=== PATIENT | female | born 1955 ===

== ENCOUNTER → 2017-06-15 | Outpatient (CLI) | payer MEDICARE, OTHER ==
[~2017-06-15] MED LIST: ASPI81EC PO; CHOL10002 PO; CYCL10 PO; Cyclobenzaprine5 MG PO; DULO30; DULO60 PO; FAMO20 PO; GUAI120S1 PO; HYDACE5 PO; IBUP800 PO; KETO10 PO; LISHYD2012 PO; LOVA20 PO; MULVITMIND PO; NAPR375 PO; Norco 5-325 Ta1 EACH PO; POTASSIUM IODINE PO; PRED20 PO; PREG100 PO; Prednisone20 MG PO
== END ==
LOC: LAB 16:11
DX: L01.01 Non-bullous impetigo (principal); L40.0 Psoriasis vulgaris
CPT/HCPCS: 87070; 87205

== ENCOUNTER 2018-01-26 09:23 | Emergency (ER) | payer MEDICARE, OTHER ==
[~2018-01-26] VITALS: Ht 162.6 cm; Wt 117.9 kg
[~2018-01-26 09:23] MED LIST changes: -Cyclobenzaprine5 MG PO; -IBUP800 PO; -KETO10 PO
[2018-01-26] MEDS ORDERED: CYCL10 PO (10:14)
[2018-01-26] MEDS ORDERED: Norco 5-325 Ta1 EACH PO (10:15)
[2018-01-26] MEDS ORDERED: IBUP800 PO (10:15)
== END 2018-01-26 10:22 | disposition home or self-care (01) ==
LOC: ER 09:23
DX: G89.29 Other chronic pain (principal); M54.5 Low back pain; Z88.0 Allergy status to penicillin; Z88.2 Allergy status to sulfonamides; Z79.899 Other long term (current) drug therapy; F17.200 Nicotine dependence, unspecified, uncomplicated
CPT/HCPCS: 96372; 99283; J1885

== ENCOUNTER 2018-03-16 12:18 | Emergency (ER) | payer MEDICARE, OTHER ==
[~2018-03-16] VITALS: Ht 160 cm; Wt 117.9 kg
[~2018-03-16 12:18] MED LIST changes: +IBUP800 PO
[2018-03-16] MEDS ORDERED: KETO10 PO (12:46)
[2018-03-16] MEDS ORDERED: Cyclobenzaprine5 MG PO (12:46)
== END 2018-03-16 12:55 | disposition home or self-care (01) ==
LOC: ER 12:18
DX: M54.41 Lumbago with sciatica, right side (principal); M54.42 Lumbago with sciatica, left side; Z87.891 Personal history of nicotine dependence
CPT/HCPCS: 99282

== ENCOUNTER → 2021-03-01 | Outpatient (CLI) | payer MEDICARE ==
[~2021-03-01] MED LIST changes: +Cyclobenzaprine5 MG PO; +KETO10 PO
== END | disposition home or self-care (01) ==
LOC: LAB 14:48 → LAB SHORT 14:48
DX: N39.0 Urinary tract infection, site not specified (principal)
CPT/HCPCS: 87086

== ENCOUNTER → 2021-04-10 | Outpatient (CLI) | payer MEDICARE | LOC: LAB SHORT 19:19 → LAB 19:19 | DX: N39.0 Urinary tract infection, site not specified (principal); Z88.0 Allergy status to penicillin; Z88.2 Allergy status to sulfonamides | CPT/HCPCS: 87086 ==

== ENCOUNTER 2021-05-12 12:45 | Emergency (ER) | payer MEDICARE ==
[~2021-05-12] VITALS: Ht 160 cm; Wt 127.0 kg
[2021-05-12 13:23] LABS: BASOPHILS ABSOLUTE AUTO 0.09 K/mm3 (0.00-0.23); BASOPHILS PERCENT AUTO 1 % (0-2); EOSINOPHILS ABSOLUTE AUTO 0.24 K/mm3 (0.00-0.68); EOSINOPHILS PERCENT AUTO 3 % (0-6); Hematocrit 34.2 % (33.0-51.0); Hemoglobin 10.8 g/dL (11.5-16.0); IMMATURE GRAN ABSOLUTE AUTO 0.07 K/mm3 (0.00-0.10); IMMATURE GRAN PERCENT AUTO 1 % (0-1); LYMPHOCYTES ABSOLUTE AUTO 1.61 K/mm3 (0.84-5.20); LYMPHOCYTES PERCENT AUTO 21 % (21-46); MONOCYTES PERCENT AUTO 6 % (4-13); Mean Corpuscular HGB 28.7 pg (26.0-34.0); Mean Corpuscular HGB Conc 31.6 g/dL (31.5-36.5); Mean Corpuscular Volume 91 fL (80-100); NEUTROPHILS ABSOLUTE AUTO 5.27 K/mm3 (1.96-9.15); NEUTROPHILS PERCENT AUTO 68 % (41-73); Platelet Count 320 K/mm3 (150-400); RDW Coefficient Variation 15.4 % (11.7-14.2); RDW Standard Deviation 51.1 fL (35.1-46.3); Red Blood Cell Count 3.76 M/mm3 (3.80-5.20); White Blood Cell Count 7.78 K/mm3 (4.00-11.30)
[2021-05-12 13:43] LABS: Alanine Aminotransfer (ALT/SGP 95 U/L (12-78); Albumin, Blood 2.8 g/dL (3.4-5.0); Albumin/Globulin Ratio 0.7 (0.8-1.8); Alk Phos 95 U/L (50-136); Anion Gap 7 mmol/L (6-16); Aspartate Aminotrans (AST/SGOT 46 U/L (12-37); Bilirubin, Total 0.2 mg/dL (0.1-1.0); Blood Urea Nitrogen 10 mg/dL (8-24); Bun/Creatinine Ratio 10.5 (12.0-20.0); CO2, Blood 25 mmol/L (21-32); Calcium, Blood 8.4 mg/dL (8.5-10.1); Chloride, Blood 106 mmol/L (98-108); Creatinine, Blood 0.95 mg/dL (0.40-1.00); Glomerular Filtration Rate 59 (60-); Glucose, Blood 139 mg/dL (70-99); Potassium, Blood 3.3 mmol/L (3.5-5.5); Sodium, Blood 138 mmol/L (136-145); Total Protein, Blood 6.8 g/dL (6.4-8.2); Troponin I <0.015 ng/mL (0.000-0.040)
[2021-05-12] MEDS ORDERED: LISI20 PO (15:43)
[2021-05-12] MEDS ORDERED: CLOBETASOL EMOL15 G1 (15:43)
[2021-05-12] MEDS ORDERED: ZOLOFT50 MG PO (15:44)
[2021-05-12] MEDS ORDERED: PRAMIPEXOLE0.125 M1 PO (15:44)
[2021-05-12] MEDS ORDERED: HYDCHL25 PO (15:44)
[2021-05-12] MEDS ORDERED: OMEP20ER PO (15:44)
[2021-05-12] MEDS ORDERED: [UNRECOGNIZED DRUG - CODE] PO (15:45)
[2021-05-12] MEDS ORDERED: SKYRIZI75 MG/0.81 SQ (15:45)
[2021-05-12] MEDS ORDERED: ATOR40TA PO (15:45)
[2021-05-12] MEDS ORDERED: CODEINE-GUAIFE120 M1 PO (16:01)
== END 2021-05-12 16:16 | disposition home or self-care (01) ==
LOC: ER 12:45
PROVIDERS: Physician Assistant
DX: J40 Bronchitis, not specified as acute or chronic (principal); Z88.0 Allergy status to penicillin; Z88.2 Allergy status to sulfonamides; Z79.899 Other long term (current) drug therapy; Z79.84 Long term (current) use of oral hypoglycemic drugs; G47.33 Obstructive sleep apnea (adult) (pediatric); Z87.891 Personal history of nicotine dependence
CPT/HCPCS: 36415; 71045; 80053; 83880; 84484; 85025; 93005; 93010; 99283-25

== ENCOUNTER → 2021-10-03 | Outpatient (CLI) | payer MEDICARE, OTHER ==
[~2021-10-03] MED LIST changes: +ATOR40TA PO; +CLOBETASOL EMOL15 G1; +CODEINE-GUAIFE120 M1 PO; +HYDCHL25 PO; +LISI20 PO; +OMEP20ER PO; +PRAMIPEXOLE0.125 M1 PO; +SKYRIZI75 MG/0.81 SQ; +ZOLOFT50 MG PO; +[UNRECOGNIZED DRUG - CODE] PO
== END | disposition home or self-care (01) ==
LOC: LAB SHORT 08:30 → LAB 08:30
DX: L08.9 Local infection of the skin and subcutaneous tissue, unspecified (principal)
CPT/HCPCS: 87070; 87077; 87147; 87186; 87205

== ENCOUNTER 2021-10-16 06:31 | Emergency (ER) | payer MEDICARE, OTHER ==
[~2021-10-16] VITALS: Ht 157.5 cm; Wt 127.0 kg
[2021-10-16 07:06] LABS: BASOPHILS PERCENT AUTO 1 % (0-2); EOSINOPHILS ABSOLUTE AUTO 0.19 K/mm3 (0.00-0.68); EOSINOPHILS PERCENT AUTO 2 % (0-6); Hematocrit 32.8 % (33.0-51.0); Hemoglobin 10.5 g/dL (11.5-16.0); IMMATURE GRAN ABSOLUTE AUTO 0.13 K/mm3 (0.00-0.10); IMMATURE GRAN PERCENT AUTO 1 % (0-1); LYMPHOCYTES ABSOLUTE AUTO 1.29 K/mm3 (0.84-5.20); LYMPHOCYTES PERCENT AUTO 14 % (21-46); MONOCYTES ABSOLUTE AUTO 0.62 K/mm3 (0.16-1.47); MONOCYTES PERCENT AUTO 7 % (4-13); Mean Corpuscular HGB 28.3 pg (26.0-34.0); Mean Corpuscular Volume 88 fL (80-100); Mean Platelet Volume 9.9 fL (9.1-12.4); NEUTROPHILS ABSOLUTE AUTO 6.69 K/mm3 (1.96-9.15); NEUTROPHILS PERCENT AUTO 74 % (41-73); Platelet Count 418 K/mm3 (150-400); RDW Coefficient Variation 17.1 % (11.7-14.2); RDW Standard Deviation 55.5 fL (35.1-46.3); Red Blood Cell Count 3.71 M/mm3 (3.80-5.20); White Blood Cell Count 9.02 K/mm3 (4.00-11.30)
[2021-10-16 07:26] LABS: Alanine Aminotransfer (ALT/SGP 67 U/L (12-78); Albumin, Blood 3.1 g/dL (3.4-5.0); Albumin/Globulin Ratio 0.8 (0.8-1.8); Alk Phos 96 U/L (50-136); Anion Gap 7 mmol/L (6-16); Aspartate Aminotrans (AST/SGOT 25 U/L (12-37); Bilirubin, Total 0.2 mg/dL (0.1-1.0); Blood Urea Nitrogen 15 mg/dL (8-24); CO2, Blood 24 mmol/L (21-32); Calcium, Blood 8.4 mg/dL (8.5-10.1); Chloride, Blood 111 mmol/L (98-108); Creatinine, Blood 0.88 mg/dL (0.40-1.00); Globulin, Blood 3.9 g/dL (2.2-4.0); Glomerular Filtration Rate >60 (60-); Glucose, Blood 144 mg/dL (70-99); Potassium, Blood 4.1 mmol/L (3.5-5.5); Sodium, Blood 142 mmol/L (136-145)
[2021-10-16] MEDS ORDERED: Toprol Xl25 MG PO (09:45)
[2021-10-16] MEDS ORDERED: Lasix20 MG PO (09:45)
== END 2021-10-16 10:23 | disposition home or self-care (01) ==
LOC: ER 06:31
PROVIDERS: Emergency Medicine
DX: R07.89 Other chest pain (principal); R06.00 Dyspnea, unspecified; I10 Essential (primary) hypertension; J90 Pleural effusion, not elsewhere classified; E66.9 Obesity, unspecified; G47.33 Obstructive sleep apnea (adult) (pediatric); Z87.891 Personal history of nicotine dependence; Z79.899 Other long term (current) drug therapy; Z88.0 Allergy status to penicillin; Z88.2 Allergy status to sulfonamides; Z79.84 Long term (current) use of oral hypoglycemic drugs
CPT/HCPCS: 36415; 71046; 71260; 80053; 83690; 83880; 84484; 85025; 93005; 93010; A9270; J1940; Q9967

== ENCOUNTER 2021-12-08 07:16 | Day surgery (SDC) | payer MEDICARE, OTHER ==
[~2021-12-08] VITALS: Ht 160 cm; Wt 121.7 kg
[~2021-12-08 07:16] MED LIST changes: +FURO40 PO; +Lasix20 MG PO; +METO25ER PO; +POTA10T PO; +PRAM.5 PO; +PROAIR DIGIHAL90 MCG INH; +Toprol Xl25 MG PO; +ZESTRIL40 M1 PO
== END 2021-12-08 09:45 | disposition home or self-care (01) ==
LOC: ORSCSDS 07:16
PROVIDERS: Surgery
PROC: 0DBK8ZX Excision of Ascending Colon, Via Natural or Artificial Opening Endoscopic, Diagnostic (ICD-10-PCS; principal; 2021-12-08 08:30)
DX: Z12.11 Encounter for screening for malignant neoplasm of colon (principal); D12.2 Benign neoplasm of ascending colon; J44.9 Chronic obstructive pulmonary disease, unspecified; G47.33 Obstructive sleep apnea (adult) (pediatric); E11.22 Type 2 diabetes mellitus with diabetic chronic kidney disease; I12.9 Hypertensive chronic kidney disease with stage 1 through stage 4 chronic kidney disease, or unspecified chronic kidney disease; N18.2 Chronic kidney disease, stage 2 (mild); Z79.84 Long term (current) use of oral hypoglycemic drugs; E78.00 Pure hypercholesterolemia, unspecified; Z79.899 Other long term (current) drug therapy; E66.01 Morbid (severe) obesity due to excess calories; Z68.42 Body mass index [BMI] 45.0-49.9, adult
CPT/HCPCS: 82947; 88305; J2704; J7120

== ENCOUNTER 2022-11-26 10:07 | Day surgery (SDC) | payer MEDICARE, OTHER ==
[~2022-11-26] VITALS: Ht 160 cm; Wt 106.8 kg
[2022-11-26] MEDS ORDERED: POTA8 (10:29)
[2022-11-26] MEDS ORDERED: METF500 (10:29)
[2022-11-26] MEDS ORDERED: OMEP20ER (10:29)
[2022-11-26] MEDS ORDERED: Citalopram10 MG/5 ML (10:29)
[2022-11-26] MEDS ORDERED: MELO7.5 (10:30)
[2022-11-26] MEDS ORDERED: Lisinopril2.5 MG (10:30)
[2022-11-26] MEDS ORDERED: ROSU5 (10:30)
[2022-11-26] MEDS ORDERED: METO25ER (10:30)
[2022-11-26] MEDS ORDERED: PRAM.125 (10:30)
[2022-11-26] MEDS ORDERED: MULVITA (10:31)
[2022-11-26] MEDS ORDERED: ALBU90OI (10:31)
[2022-11-26] MEDS ORDERED: SKYRIZI150 MG/1 M (10:31)
[2022-11-26] MEDS ORDERED: BENADRYL25 MG (10:32)
[2022-11-26] MEDS ORDERED: FLAX (10:32)
[2022-11-26] MEDS ORDERED: Cymbalta20 MG (10:32)
[2022-11-26] MEDS ORDERED: MELA3 (10:32)
[2022-11-26 12:43] VITALS: BP 107/67
== END 2022-11-26 12:40 | disposition home or self-care (01) ==
LOC: ORSCSDS 10:07
PROVIDERS: Internal Medicine Gastroenterology
PROC: 0DB68ZX Excision of Stomach, Via Natural or Artificial Opening Endoscopic, Diagnostic (ICD-10-PCS; principal; 2022-11-26 11:30)
DX: R13.10 Dysphagia, unspecified (principal); K25.9 Gastric ulcer, unspecified as acute or chronic, without hemorrhage or perforation; K20.90 Esophagitis, unspecified without bleeding; G47.33 Obstructive sleep apnea (adult) (pediatric); E78.5 Hyperlipidemia, unspecified; D64.9 Anemia, unspecified; I12.9 Hypertensive chronic kidney disease with stage 1 through stage 4 chronic kidney disease, or unspecified chronic kidney disease; E11.22 Type 2 diabetes mellitus with diabetic chronic kidney disease; F43.10 Post-traumatic stress disorder, unspecified; E66.9 Obesity, unspecified; Z68.41 Body mass index [BMI] 40.0-44.9, adult; Z87.891 Personal history of nicotine dependence; Z79.84 Long term (current) use of oral hypoglycemic drugs; Z79.899 Other long term (current) drug therapy
CPT/HCPCS: 82947; 88305; 88342; J2001; J2704; J7120

== ENCOUNTER 2023-04-26 08:34 | Day surgery (SDC) | payer MEDICARE, OTHER ==
[2023-04-26] VITALS (14 sets, daily range): BP systolic 98–164; BP diastolic 58–82
[~2023-04-26] VITALS: Ht 160 cm; Wt 109.9 kg
[~2023-04-26 08:34] MED LIST changes: +ALBU90OI; +BENADRYL25 MG; +Citalopram10 MG/5 ML PO; +Cymbalta20 MG PO; +FLAX PO; +Lisinopril2.5 MG PO; +MELA3 PO; +MELO7.5; +METF500 PO; +MULVITA PO; +PANT40 PO; +POTA8 PO; +PRAM.125 PO; +ROSU5 PO; +SKYRIZI150 MG/1 M SC; +TRULICITY SC
[2023-04-26] MEDS ORDERED: CITALOPRAM HBR10 MG PO (11:02)
--- NOTE | 2023-04-26 13:19 | NUR ---
04/26/23 1319 Jacqueline Orozco SPINAL NERVE BLOCK COMPLETED BY DR. MAHAJAN UPON ENTRY TO OR. PT TOLERATED WELL.
--- NOTE | 2023-04-26 15:11 | NUR ---
ARRIVAL TO UNIT ALERT BUT FLAT AFFECT. ASSESSMENT CHARTED. DENIES N/V. SNACKS & FLUIDS GIVEN.
--- NOTE | 2023-04-26 18:17 | NUR ---
SPINAL ABLE TO LIFT R LEG SLIGHTLY BUT CAN'T HOLD IT UP MORE THAN 2 SECONDS.
[2023-04-27 00:02] VITALS: BP 134/63
[2023-04-27 02:49] VITALS: BP 119/66
[2023-04-27 04:52] LABS: BASOPHILS ABSOLUTE AUTO 0.04 K/mm3 (0.00-0.23); BASOPHILS PERCENT AUTO 0 % (0-2); EOSINOPHILS PERCENT AUTO 0 % (0-6); Hematocrit 34.8 % (33.0-51.0); Hemoglobin 11.2 g/dL (11.5-16.0); IMMATURE GRAN ABSOLUTE AUTO 0.08 K/mm3 (0.00-0.10); IMMATURE GRAN PERCENT AUTO 1 % (0-1); LYMPHOCYTES ABSOLUTE AUTO 1.11 K/mm3 (0.84-5.20); LYMPHOCYTES PERCENT AUTO 7 % (21-46); MONOCYTES ABSOLUTE AUTO 0.96 K/mm3 (0.16-1.47); MONOCYTES PERCENT AUTO 6 % (4-13); Mean Corpuscular HGB 28.9 pg (26.0-34.0); Mean Corpuscular HGB Conc 32.2 g/dL (31.5-36.5); Mean Corpuscular Volume 90 fL (80-100); Mean Platelet Volume 12.2 fL (9.1-12.4); NEUTROPHILS ABSOLUTE AUTO 14.55 K/mm3 (1.96-9.15); NEUTROPHILS PERCENT AUTO 87 % (41-73); Platelet Count 243 K/mm3 (150-400); RDW Standard Deviation 46.1 fL (35.1-46.3); Red Blood Cell Count 3.87 M/mm3 (3.80-5.20); White Blood Cell Count 16.74 K/mm3 (4.00-11.30)
--- NOTE | 2023-04-27 04:59 | NUR ---
SHIFT SUMMARY NO ACUTE CHANGES TO REPORT OVERNIGHT, PT HAS RESTED T/O THE NIGHT. PT HAS BEEN UP AND AMBULATING AND IS VOIDING. TOLERATING PO INTAKE. PT DENIES N/T IN EXT AND IS ABLE TO WIGGLE TOES. IV ANTIBIOTICS INFUSED. DRESSING C/D/I TO RIGHT KNEE. POST OP VITALS STABLE, BED IN LOWEST POSITION, CALL LIGHT WITHIN REACH.
[2023-04-27 05:47] LABS: Bun/Creatinine Ratio 24.6 (12.0-20.0); Calcium, Blood 8.8 mg/dL (8.5-10.1); Creatinine, Blood 0.93 mg/dL (0.40-1.00); Potassium, Blood 4.5 mmol/L (3.5-5.5)
[2023-04-27 07:40] VITALS: BP 139/68
[2023-04-27] MEDS ORDERED: ASPI81CH PO (08:53)
[2023-04-27] MEDS ORDERED: Percocet 5-3251 EACH PO (08:54)
--- NOTE | 2023-04-27 09:35 | NUR ---
CLEARED THERAPY. EATING, DRINKING, & VOIDING. PAIN WELL CONTROLLED. DISCUSSED DISCHARGE INFO. WAITING ON SPOUSE FOR RIDE HOME.
--- NOTE | 2023-04-27 10:30 | NUR ---
SPOUSE HERE & WANTS TO GO GET SCRIPT FILLED THEN RETURN TO TAKE PT HOME.
--- NOTE | 2023-04-27 11:43 | NUR ---
ESCORTED OUT VIA WC.
== END 2023-04-27 11:46 | disposition home or self-care (01) ==
LOC: ORSCMMR 08:34 → ORD 10:00 → ORSCMMR 10:00 → ORD 11:00 → SURS 15:19 → ORSCMMR 04-27 11:46
PROVIDERS: Orthopaedic Surgery
PROC: 0SRC0JA Replacement of Right Knee Joint with Synthetic Substitute, Uncemented, Open Approach (ICD-10-PCS; principal; 2023-04-26 10:00)
DX: M17.11 Unilateral primary osteoarthritis, right knee (principal); E11.9 Type 2 diabetes mellitus without complications; I10 Essential (primary) hypertension; Z79.84 Long term (current) use of oral hypoglycemic drugs; E66.01 Morbid (severe) obesity due to excess calories; Z68.41 Body mass index [BMI] 40.0-44.9, adult; I50.9 Heart failure, unspecified; Z79.899 Other long term (current) drug therapy
CPT/HCPCS: 73560-RT; 80048; 82947; 85025; 94660; 94762; 97110; 97116; 97162; A9270; C1776; J0171; J0690; J0735; J1100; J1170; J1885; J2250; J2405; J2704; J2795; J3010; J3370; J7120

== ENCOUNTER 2023-05-07 17:48 | Emergency (ER) | payer MEDICARE, OTHER ==
[~2023-05-07] VITALS: Ht 160 cm; Wt 111.1 kg
[~2023-05-07 17:48] MED LIST changes: +ASPI81CH PO; +CITALOPRAM HBR10 MG PO; +Percocet 5-3251 EACH PO
[2023-05-07] MEDS ORDERED: MELO7.5 PO (19:40)
[2023-05-07 20:30] VITALS: BP 138/82
[2023-05-07] MEDS ORDERED: MIRALAX17 GM PO (21:33)
[2023-05-07] MEDS ORDERED: BISA5EC PO (21:33)
[2023-05-07] MEDS ORDERED: MINERAL OIL133 M1 PR (21:34)
== END 2023-05-07 21:47 | disposition home or self-care (01) ==
LOC: ER 17:48
DX: K59.00 Constipation, unspecified (principal); I10 Essential (primary) hypertension; G47.33 Obstructive sleep apnea (adult) (pediatric); Z88.0 Allergy status to penicillin; Z88.2 Allergy status to sulfonamides; Z88.8 Allergy status to other drugs, medicaments and biological substances; Z79.899 Other long term (current) drug therapy; Z79.84 Long term (current) use of oral hypoglycemic drugs; Z79.82 Long term (current) use of aspirin; Z87.891 Personal history of nicotine dependence
CPT/HCPCS: 99283; A9270

== ENCOUNTER → 2023-08-08 | Outpatient (CLI) | payer MEDICARE, OTHER ==
[~2023-08-08] MED LIST changes: +BISA5EC PO; +MELO7.5 PO; +MINERAL OIL133 M1 PR; +MIRALAX17 GM PO
== END | disposition home or self-care (01) ==
LOC: LAB SHORT 17:27
DX: N39.0 Urinary tract infection, site not specified (principal)
CPT/HCPCS: 87077; 87086; 87186

== ENCOUNTER → 2024-07-18 | Outpatient (CLI) | payer MEDICARE, OTHER ==
[~2024-07-18] MED LIST changes: +ALBU90OI6 INH; +AMLO5 PO; +ATOR80 PO; +GABA100; +HYDCHL12.5 PO; +ROPI.25 PO; +ROSU10TA PO
[2024-07-18 16:51] LABS: Percent Saturation 13.8 % (15.0-50.0)
== END ==
LOC: LAB 15:01 → LAB SHORT 15:01
PROVIDERS: Student in an Organized Health Care Education/Training Program
DX: E11.69 Type 2 diabetes mellitus with other specified complication (principal); E61.1 Iron deficiency; E66.9 Obesity, unspecified; G25.81 Restless legs syndrome
CPT/HCPCS: 82728; 83036; 83540; 83550

== ENCOUNTER → 2024-09-13 | Outpatient (CLI) | payer MEDICARE, OTHER ==
[2024-09-13 19:35] LABS: Bun/Creatinine Ratio 25.4 (12.0-20.0); Creatinine, Blood 0.83 mg/dL (0.40-1.00); Potassium, Blood 4.1 mmol/L (3.5-5.5)
== END ==
LOC: LAB SHORT 13:36 → LAB 13:36
PROVIDERS: Student in an Organized Health Care Education/Training Program
DX: I10 Essential (primary) hypertension (principal)
CPT/HCPCS: 80048

== ENCOUNTER → 2024-09-17 | Outpatient (CLI) | payer MEDICARE, OTHER | LOC: LAB SHORT 11:14 → LAB 11:14 | DX: L08.0 Pyoderma (principal) | CPT/HCPCS: 87070; 87077; 87186; 87205 ==

== ENCOUNTER 2024-09-28 16:43 | Emergency (ER) | payer MEDICARE, OTHER ==
[~2024-09-28] VITALS: Ht 167.6 cm; Wt 136.1 kg
[2024-09-28 17:32] LABS: BASOPHILS ABSOLUTE AUTO 0.12 K/mm3 (0.00-0.23); BASOPHILS PERCENT AUTO 1 % (0-2); EOSINOPHILS ABSOLUTE AUTO 0.23 K/mm3 (0.00-0.68); EOSINOPHILS PERCENT AUTO 3 % (0-6); Hematocrit 42.1 % (33.0-51.0); Hemoglobin 13.6 g/dL (11.5-16.0); IMMATURE GRAN ABSOLUTE AUTO 0.05 K/mm3 (0.00-0.10); IMMATURE GRAN PERCENT AUTO 1 % (0-1); LYMPHOCYTES ABSOLUTE AUTO 2.11 K/mm3 (0.84-5.20); LYMPHOCYTES PERCENT AUTO 25 % (21-46); MONOCYTES ABSOLUTE AUTO 0.69 K/mm3 (0.16-1.47); MONOCYTES PERCENT AUTO 8 % (4-13); Mean Corpuscular HGB 30.1 pg (26.0-34.0); Mean Corpuscular HGB Conc 32.3 g/dL (31.5-36.5); Mean Corpuscular Volume 93 fL (80-100); NEUTROPHILS ABSOLUTE AUTO 5.12 K/mm3 (1.96-9.15); NEUTROPHILS PERCENT AUTO 62 % (41-73); Platelet Count 302 K/mm3 (150-400); RDW Coefficient Variation 15.7 % (11.7-14.2); RDW Standard Deviation 53.6 fL (35.1-46.3); Red Blood Cell Count 4.52 M/mm3 (3.80-5.20); White Blood Cell Count 8.32 K/mm3 (4.00-11.30)
[2024-09-28 17:49] LABS: Albumin, Blood 3.7 g/dL (3.4-5.0); Bilirubin, Total 0.2 mg/dL (0.1-1.0); Bun/Creatinine Ratio 24.1 (12.0-20.0); Calcium, Blood 9.2 mg/dL (8.5-10.1); Creatinine, Blood 0.79 mg/dL (0.40-1.00); Globulin, Blood 3.6 g/dL (2.2-4.0); Potassium, Blood 3.7 mmol/L (3.5-5.5); Total Protein, Blood 7.3 g/dL (6.4-8.2)
[2024-09-28] MEDS ORDERED: METF500 PO (18:40)
[2024-09-28] MEDS ORDERED: Acetaminophen 500 MG Tab PO ONE (20:20)
[2024-09-28 21:00] VITALS: BP 148/87
== END 2024-09-28 21:23 | disposition home or self-care (01) ==
LOC: ER 16:43
PROVIDERS: Student in an Organized Health Care Education/Training Program
DX: M79.89 Other specified soft tissue disorders (principal); Z87.891 Personal history of nicotine dependence; I10 Essential (primary) hypertension; M79.605 Pain in left leg; M79.604 Pain in right leg; E11.9 Type 2 diabetes mellitus without complications; Z88.0 Allergy status to penicillin; Z88.5 Allergy status to narcotic agent; Z88.2 Allergy status to sulfonamides; Z88.8 Allergy status to other drugs, medicaments and biological substances; Z88.9 Allergy status to unspecified drugs, medicaments and biological substances; Z79.899 Other long term (current) drug therapy; Z79.891 Long term (current) use of opiate analgesic; Z79.51 Long term (current) use of inhaled steroids; Z79.84 Long term (current) use of oral hypoglycemic drugs; R13.10 Dysphagia, unspecified
CPT/HCPCS: 74220; 80053; 85025; 93970; 99284-25; A9270